=== PATIENT | female | born 1965 | race Caucasian/White ===

== ENCOUNTER 2018-12-26 10:01 | Inpatient (IN) | payer BC ==
[~2018-12-26] VITALS: Ht 165.1 cm; Wt 79.4 kg
[2018-12-26 14:01] VITALS: BP 103/60
[2018-12-26 14:23] LABS: ABSOLUTE NEUTROPHILS 5.4 thou/uL (1.4-8.2); BASOPHILS 1.3 % (0.0-2.0); EOSINOPHILS 1.3 % (0.0-3.0); HEMATOCRIT 28.8 % (37.0-47.0); HEMOGLOBIN 9.3 gm/dL (12.0-15.0); LYMPHOCYTES 23.9 % (24.0-44.0); MCH 25.3 pg (26.0-34.0); MCHC 32.2 g/dL (28.0-37.0); MCV 78.4 fL (80.0-100.0); MONOCYTES 11.7 % (1.0-8.0); PLATELET COUNT 323 thou/uL (150-400); POLYS 61.8 % (36.0-66.0); RBC 3.68 mil/uL (4.20-5.00); RDW 16.5 % (10.5-14.5); WBC 8.7 thou/uL (4.0-11.0)
[2018-12-26 14:35] LABS: ALBUMIN 2.1 g/dL (3.4-5.0); CREATININE 3.3 mg/dL (0.6-1.0); MAGNESIUM 2.7 mg/dL (1.8-2.4); POTASSIUM 4.8 mmol/L (3.5-5.1); TOTAL BILIRUBIN 0.2 mg/dL (<0.1-1.0)
--- NOTE | 2018-12-26 17:09 | NUR ---
PT RECIEVED FROM THE WOUND CLINIC TO RM 359 AT 1330. PT HAS LT TOES WOUNDS THAT STARTED ONE WEEK AGO. STATES SHE HAS NO PAIN FROM THE WOUNDS. AMBULATES STEADY AND STATES NO PAIN WHEN WALKING. DR. MARIN, SHEARER HELPER, WAS IN TO SEE PT AND CLEANED AND DRESSED THE TOES. CULTURE SENT PRIOR TO ANTIBIOTICS. URINE SENT. HAVING ULTRASOUND ARTERIOGRAM AT THIS TIME. MRI WILL BE DONE TOMORROW THEY STARTED THEY HAVE ERMERGENCIES TODAY.
[2018-12-26 19:53] LABS: URINE BILIRUBIN NEGATIVE (Negative); URINE BLOOD 2+ (Negative); URINE CLARITY CLEAR; URINE COLOR YELLOW; URINE GLUCOSE-RANDOM* 1+ (Negative); URINE KETONES NEGATIVE (Negative); URINE PROTEIN (DIPSTICK) 3+ (Negative); URINE UROBILINOGEN 0.2 E.U./dl (0.2-1.0)
[2018-12-26 19:54] LABS: URINE LEUKOCYTES-REFLEX 1+ (Negative); URINE NITRITE-REFLEX POSITIVE (Negative)
[2018-12-26 20:03] LABS: CASTS None Seen /LPF (None Seen); CRYSTALS None Seen /LPF (None Seen); SQUAMOUS 0-3 Few /LPF (0-3); URINE RBC 3-10 Few /HPF (0-2); URINE WBC-REFLEX >25 Many /HPF (0-5)
[2018-12-26 20:04] LABS: WBC CLUMPS Few (None Seen)
[2018-12-26 20:05] VITALS: BP 101/61
[2018-12-26] MEDS ORDERED: NEURONTIN 300300 M1 PO (20:58)
[2018-12-26] MEDS ORDERED: COZAAR 25 MG TA25 M1 PO (21:01)
[2018-12-26] MEDS ORDERED: HUMALOG100 UNIT/1 SUBQ (21:01)
[2018-12-26] MEDS ORDERED: AMLODIPINE BESY10 MG PO (21:01)
[2018-12-26] MEDS ORDERED: TRESIBA FL100 UNIT/1 SUBQ (21:02)
[2018-12-26] MEDS ORDERED: TYLENOL325 MG PO (21:03)
[2018-12-26 23:11] LABS: FERRITIN 432 ng/mL (8-252)
[2018-12-26 23:23] LABS: % SATURATION 17 % (20-39); IRON 31 ug/dL (50-170); TIBC 187 ug/dL (250-450)
[2018-12-27 00:50] VITALS: BP 107/67
--- NOTE | 2018-12-27 01:00 | NUR ---
PATIENT IS ALERT AND ORIENTED. PATIENT IS UP AD REID. PATIENT DRESSING WAS CHANGED THIS SHIFT. PATIENT IS ACHS. PATIENTS LBM WAS THE 17TH. PATIENTS HAS LOWER EXTREMITY EDEMA. ELEVATED WITH PILLOW. PATIENT IS INDEPENDENT AND CALLS APPROPIATELY. WCM. PATIENT IS PROGRESSING TO GOALS.
[2018-12-27 04:14] VITALS: BP 148/91
[2018-12-27 05:06] LABS: GLYCOHEMOGLOBIN (HGB A1C) 9.1 % (4.8-5.6)
[2018-12-27 07:27] VITALS: BP 147/82
[2018-12-27 10:42] LABS: HEMATOCRIT 27.8 % (37.0-47.0); HEMOGLOBIN 8.8 gm/dL (12.0-15.0); MCHC 31.6 g/dL (28.0-37.0); MCV 79.1 fL (80.0-100.0); RBC 3.51 mil/uL (4.20-5.00); RDW 16.3 % (10.5-14.5); WBC 6.1 thou/uL (4.0-11.0)
[2018-12-27 10:54] LABS: CREATININE 3.5 mg/dL (0.6-1.0); MAGNESIUM 2.5 mg/dL (1.8-2.4); POTASSIUM 5.1 mmol/L (3.5-5.1)
--- NOTE | 2018-12-27 12:02 | NUR ---
ASSUMED CARE OF PT AT 0700 THIS SHIFT. PT HAS BEEN COOPERATIVE, HAS DENIED ANY PAIN THIS SHIFT. PT WAS SEEN BY RENAL AND ID THIS SHIFT, ORDERS WRITTEN. PT IS FOLLOWING WITH COURSE OF TREATMENT. PT IS CURRENTLY RESTING COMFORTABLY IN ROOM, ASSESSMENTS ARE DOCUMENTED. PT HAS NOT HAD VISITORS THIS SHIFT, EDUCATION WAS PROVIDED. PLAN OF CARE IS TO CONTINUE TO MONITOR CLOSELY.
--- NOTE | 2018-12-27 13:45 | NUR ---
Nutrition: pt admit with Left foot/toe cellulitis and seen due to wound risk. Hx DM, BG 143-360 with A1C 9.1. Pt reports a gradual weight loss from 220# several years ago. Current 175#. Observed 100% intake of meals today. Encouraged adequate protein for wound healing. Pt did not voice diet related questions at this time however would benefit from improved BG control.Low risk
--- NOTE | 2018-12-27 15:25 | NUR ---
ASSESSMENT: CM REVIEWED CHART AND MET WITH PATIENT AT THE BEDSIDE. PT IS ALERT AND ORIENTED X4. PT WAS ADMITTED DUE TO LEFT FOOT WOUNDS ON HER TOES AND WAS A DIRECT ADMIT FROM THE WOUND CLINIC. PT REPORTS SHE LIVES IN A HOUSE WITH HER SON. PT REPORTS HAVING ONE STEP TO ENTER WITH A HANDRAIL. PT REPORTS ONCE INSIDE ALL HER NEEDS ARE ON ONE LEVEL. PT REPORTS AMBULATING INDEPENDENTLY. PT STATES SHE HAS A GRAB BAR IN THE SHOWER. CM DISCUSSED ROLE. PT STATES SHE HAS NOT HAD HH IN THE PAST. PATIENT IS CURRENTLY ON IV ANBX. CM WILL CONTINUE TO FOLLOW TO ASSIST NEEDED.
[2018-12-27 16:41] VITALS: BP 142/89
--- NOTE | 2018-12-27 17:31 | NUR ---
WOUND CONSULT: PT. WAS SEEN TODAY BY DR. GAVIN AND MYSELF. PT. WAS ADMITTED YESTERDAY FROM THE WOUND CLINIC FOR EVLUATION OF WOUNDS TO LEFT TOES. PT. HAS DIABETIC ULCERS TO HER LEFT TOES. RECOMMENDATIONS: GENTAMYCIN, XEROFORM, KERLIX, CHANGE DAILY AND PRN. PT. AND STAFF NURSE WERE INSTRUCTED ON PLAN OF CARE.
[2018-12-27 19:26] LABS: PROT/CREAT RATIO 13.5; URINE CREATININE-RANDOM* 25.3 mg/dL; URINE PROTEIN-RANDOM* 342.2 mg/dL (<11.9)
[2018-12-27 20:20] VITALS: BP 151/91
--- NOTE | 2018-12-27 22:40 | NUR ---
PATIENT IS ALERT AND ORIENTED. PATIENT IS STABLE. DRESSING INTACT. PATIENT MEDS AND ASSESSMENT COMPLETE. PATIENT TRANSFERED TO 4TH FLOOR. [facility]
--- NOTE | 2018-12-28 01:50 | NUR ---
RECEIVED REPORT FROM 3W RN AT 2245, PT ARRIVED TO UNIT APPROX 2300 IN STABLE CONDITION. ASSESSMENT AND VS COMPLETED; IV ABX INFUSING. PT A&Ox4, PLEASANT, UP AD REID. DRESSING TO LEFT FOOT C/D/I. DENIES PAIN, NAUSEA, OR SOB. NO OTHER CONCERNS, WILL CONTINUE TO MONITOR.
[2018-12-28 03:30] VITALS: BP 146/84
[2018-12-28 04:55] LABS: HEMATOCRIT 28.7 % (37.0-47.0); HEMOGLOBIN 9.1 gm/dL (12.0-15.0); MCHC 31.6 g/dL (28.0-37.0); RBC 3.63 mil/uL (4.20-5.00); RDW 16.2 % (10.5-14.5); WBC 7.2 thou/uL (4.0-11.0)
[2018-12-28 05:06] LABS: CALCIUM 8.4 mg/dL (8.5-10.1); CREATININE 3.4 mg/dL (0.6-1.0); MAGNESIUM 2.5 mg/dL (1.8-2.4); POTASSIUM 4.5 mmol/L (3.5-5.1)
[2018-12-28 07:25] VITALS: BP 149/91
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
--- NOTE | 2018-12-28 10:01 | NUR ---
ASSESMENT COMPLETED. VSS. A/O. DENIES PAIN. NO NOTED SOA. NO NV. PT RESTING IN BED APPEARS COMFORTABLE. UP AD REID. WILL CONT. TO MONITOR.
--- NOTE | 2018-12-28 12:07 | HC ---
[facility] [place] [place] [address] CONSULTATION Name: HARLEY GONZALES Room #: 423-1 ADM IN M.R.#: [id number] Admission: 12/26/18 ������������������ Attend Phys: Jitendra Valerio MD Discharge: ������������������ Date of : 61 Report #: [id number] THIS REPORT FOR: //name// CC: Mark Valerio DATE OF SERVICE: 12/27/2018 REASON FOR CONSULTATION: Chronic kidney disease. HISTORY OF PRESENT ILLNESS: This is a patient with longstanding diabetes and hypertension, has known CKD is followed by a field administrative assistant and was admitted with diabetic foot ulcers with infection, has a creatinine of 3.3 and a BUN of 43 and proteinuria. PAST MEDICAL HISTORY: She has had diabetes going on 20 years, at times poorly controlled and hypertension for about 10 years, reasonably well controlled. She had previous lumpectomy for breast cancer, cataract surgeries and now the onset of diabetic foot ulcers, followed by Dr. Valerio. HOME MEDICATIONS: Listed as amlodipine 10 mg daily, gabapentin 300 mg t.i.d., insulin and losartan 25 mg daily. FAMILY HISTORY: Positive for diabetes, negative for renal disease. SOCIAL HISTORY: Former smoker. 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 REVIEW OF SYSTEMS: GENERAL: She has been feeling fair. EYES: Vision has been okay. She did have the cataract surgeries, but apparently has not had retinopathy. ENT: Hearing okay, swallows okay. No mouth sores. ENDOCRINE: Positive for the diabetes. RESPIRATORY: Denies shortness of air, pleuritic pain, hemoptysis, cough. CARDIAC: No chest pain, angina, history of heart failure or palpitations. GASTROINTESTINAL: No nausea, vomiting, diarrhea or bloody stools. GENITOURINARY: No dysuria, hematuria or renal stone disease. NEUROLOGIC: She does have peripheral neuropathy, but no seizure, syncope or stroke. MUSCULOSKELETAL: Denies arthritis. She has got the foot ulcers on her left foot. PSYCHIATRIC: Denies depression or anxiety. PHYSICAL EXAMINATION: [facility] [address] [place] [address] [facility] #: [facility]1 [facility] IN M.R.#: [id number] Admission: 12/26/18 ������������������ Attend Phys: Jitendra Valerio MD Discharge: ������������������ Date of : 61 Report #: [id number] GENERAL: This is a reasonably comfortable appearing lucid patient giving a nice history. EYES: Vision is okay. SKIN: No sores or ulcers except for the left foot as mentioned. HEENT: Mucous membranes moist. Tongue, buccal mucosa benign. NECK: Supple, no carotid bruits, no lymphadenopathy. CHEST: Clear to auscultation. HEART: Regular without murmurs, gallops or rubs. ABDOMEN: Soft and nontender, without bruits, masses or organomegaly. EXTREMITIES: The left foot has a bandage on it. LABORATORY DATA: Urinalysis showed proteinuria and possible UTI. Hemoglobin is 9.3. Sodium 137, potassium 4.8, chloride 105, bicarbonate 25, creatinine 3.3, BUN 43. ASSESSMENT: 1. Chronic kidney disease. She appears to have chronic kidney disease, likely diabetic nephropathy. I am not sure what further evaluation has been done. For completeness, renal sonography, urine protein studies and paraprotein studies will be ordered. We will continue her on her angiotensin receptor jena as a protective for her chronic kidney disease. 2. Diabetic foot ulcer. 3. Diabetes mellitus with nephropathy and neuropathy. 4. History of breast cancer, status post lumpectomy. 5. Hypertension. DICTATION ENDS HERE. ��������������������������������������������� <ELECTRONICALLY SIGNED> ���������������������������������������� By: Gilberto Orr MD ��������������������������������������������� 12/28/18 1207 [id number] Gilberto Orr MD /nt
[2018-12-28 15:15] VITALS: BP 152/64
--- NOTE | 2018-12-28 15:27 | NUR ---
WOUND FOLLOW UP: PT. WAS SEEN TODAY BY DR. GAVIN AND MYSELF. PT. WOUNDS ARE CLINICALLY BETTER TODAY AND PT. IS HOPEFULLY TO BE DISCHARGED SOON. RECOMMENDATIONS: CONTINUE WITH CURRENT PLAN OF CARE. PT. AND STAFF NURSE WERE INSTRUCTED ON PLAN OF CARE.
[2018-12-28 20:19] VITALS: BP 125/77
--- NOTE | 2018-12-29 01:33 | NUR ---
PLEASANT. UP AD REID. DRSG TO L FOOT C/D/I.PT DENIES PAIN.ON IV ABTS.
[2018-12-29 03:21] VITALS: BP 134/73
[2018-12-29 04:28] LABS: HEMATOCRIT 26.3 % (37.0-47.0); HEMOGLOBIN 8.5 gm/dL (12.0-15.0); MCH 25.5 pg (26.0-34.0); MCHC 32.3 g/dL (28.0-37.0); MCV 78.9 fL (80.0-100.0); RBC 3.33 mil/uL (4.20-5.00); RDW 16.2 % (10.5-14.5); WBC 5.9 thou/uL (4.0-11.0)
[2018-12-29 04:47] LABS: CALCIUM 8.1 mg/dL (8.5-10.1); CREATININE 3.2 mg/dL (0.6-1.0); MAGNESIUM 2.3 mg/dL (1.8-2.4); POTASSIUM 4.5 mmol/L (3.5-5.1)
[2018-12-29 08:18] VITALS: BP 171/65
[2018-12-29 08:23] VITALS: BP 163/81
--- NOTE | 2018-12-29 08:26 | NUR ---
ASSESMENT COMPLETE. VSS. A/O. DENIES PAIN. NO NOTED SOA. NO NV. BLOOD SUGAR LOW THIS AM- APPLE JUICE GIVEN. PT RESTING IN BED. NO CONCERNS VOICED. WILL CONT. TO MONITOR.
[2018-12-29 16:08] VITALS: BP 134/81
[2018-12-29 19:23] VITALS: BP 155/86
[2018-12-30 04:01] VITALS: BP 136/70
[2018-12-30 04:06] LABS: HEMOGLOBIN 8.4 gm/dL (12.0-15.0); MCH 25.4 pg (26.0-34.0); MCHC 32.2 g/dL (28.0-37.0); RBC 3.29 mil/uL (4.20-5.00); RDW 16.3 % (10.5-14.5); WBC 5.8 thou/uL (4.0-11.0)
[2018-12-30 04:21] LABS: CALCIUM 8.3 mg/dL (8.5-10.1); CREATININE 3.2 mg/dL (0.6-1.0); MAGNESIUM 2.2 mg/dL (1.8-2.4); POTASSIUM 4.7 mmol/L (3.5-5.1)
--- NOTE | 2018-12-30 04:30 | NUR ---
PT AMBULATING TO BATHROOM INDEPENDENTLY AND IS TOLERATING WELL. DENIES PAIN. FELT THOUGH BLOOD SUGAR WAS LOW AROUND 0345--CHECKED AND IT WAS 54. REFUSED N30--GQWES FOUR JUICES AND WILL RECHECK HERSELF. WILL MONITOR. RESTING COMFORTABLY. NO NEEDS VOICED. CALL LIGHT WITHIN REACH. WILL CONTINUE TO PROVIDE FREQUENT OBSERVATION.
[2018-12-30 07:35] VITALS: BP 130/81
[2018-12-30] MEDS ORDERED: CARDIZEM CD120 MG PO (10:40)
[2018-12-30] MEDS ORDERED: COZAAR 50 MG TA50 M1 PO (10:40)
[2018-12-30] MEDS ORDERED: AUGMENTIN 875-1 EACH PO (10:42)
[2018-12-30 11:32] VITALS: BP 130/81
--- NOTE | 2018-12-30 12:14 | NUR ---
ASSUMED PATIENT CRAE AT 0700. A/O X4. PLEASANT. LEFT FOOT DRESSING CHANGED PER ORDER. WILL DC TO HOME SOON. PROGRESSING TOWARDS POC GOALS.
--- NOTE | 2018-12-31 07:35 | HC ---
[facility] [address] [address] [place] [address] CONSULTATION Name: HARLEY GONZALES Room #: 423-1 [facility] IN M.R.#: [id number] Admission: 12/26/18 ������������������ Attend Phys: Jitendra Valerio MD Discharge: 12/30/18 ������������������ Date of : 61 Report #: [id number] THIS REPORT FOR: //name// CC: Mark Valerio DATE OF SERVICE: 12/27/2018 CHIEF COMPLAINT: Diabetic foot infection. HISTORY OF PRESENT ILLNESS: This is a 53-year-old female patient who was followed in the Wound Care Clinic who developed blistering of all the toes of the left foot with significant surrounding infection and cellulitis. She was admitted for aggressive antibiotic support. PAST MEDICAL HISTORY: Positive for diabetes mellitus, hypertension, diabetic foot infection. ALLERGIES: None. SOCIAL HISTORY: Positive for being a previous smoker. She has previously quit alcohol consumption on special occasions. PAST MEDICAL HISTORY: Hypertension, diabetes mellitus, hyperlipidemia, chronic kidney disease. FAMILY HISTORY: Noncontributory. REVIEW OF SYSTEMS: CONSTITUTIONAL: The patient denies fever, chills or weight loss. NEUROLOGICAL: The patient denies focal weakness, numbness, tingling. EYES: The patient denies visual changes, redness or drainage. ENT: The patient denies earache, nasal drainage or sore throat. CARDIOVASCULAR: The patient denies chest pain, palpitations or diaphoresis. PULMONARY: The patient denies cough or shortness of breath. GASTROINTESTINAL: The patient denies nausea, vomiting, diarrhea or abdominal pain. ORTHOPEDIC: The patient does have some mild pain and blistering of her toes of her left foot. Other systems in a 14-point review of systems are negative. PHYSICAL EXAMINATION: VITAL SIGNS: At this time include temperature 98.3, pulse 85, respiration rate 16, blood pressure 103/60. GENERAL: This is a chronically ill-appearing female patient who appears to be [facility] [address] [place] [address] CONSULTATION Name: HARLEY GONZALES Room #: [facility]-1 [facility] IN .R.#: [id number] Admission: 12/26/18 ������������������ Attend Phys: Jitendra Valerio MD Discharge: 12/30/18 ������������������ Date of : 61 Report #: [id number] in mental stress. HEENT: Head normocephalic. Nose and throat are clear. NECK: Supple. LUNGS: Clear. ABDOMEN: Soft. Bowel sounds present. EXTREMITIES: Lower extremities demonstrate ulcerations to the first through fourth toes of the left foot. These have already been debrided. There is a little bit of fibrinous material on the bases. There is some surrounding erythema involving the toes. LABORATORY DATA: Include an MRI, which shows questionable findings of osteomyelitis of the first toe distal phalanx versus old fracture. Arterial Doppler showed no evidence of significant stenosis. CLINICAL IMPRESSION: Diabetic foot infection with ulceration of the first through fourth toes of the left foot, status post bedside debridement by Dr. Smyth, finishing range operator. RECOMMENDATIONS: At this point in time, we will follow her with local wound care, topical gentamicin ointment and Xeroform gauze. Appreciate Podiatry input and comment regarding the MRI findings. Continue with antibiotic therapy. Continue with nutritional support to maximize wound healing and maintain glycemic control. Continue with current medications. ��������������������������������������������� <ELECTRONICALLY SIGNED> ���������������������������������������� By: Karan Eisenberg MD ��������������������������������������������� 12/31/18 0735 [id number] [id number] Karan Eisenberg MD /nt
[2018-12-31 18:08] LABS: GLOBULIN TOTAL 3.3 g/dL (2.2-3.9); M-SPIKE Not Observed g/dL (Not Observed)
== END 2018-12-30 13:45 | disposition home or self-care (01) | DRG 623 ==
LOC: HYPER 10:01 → 4E 12:56 → 3W 12:56 → 4E 12-27 22:30 → HYPER 12-31 09:51
PROVIDERS: Emergency Medicine; Internal Medicine Nephrology; Nurse Practitioner; ADMIT Internal Medicine
PROC: 0JBR0ZZ Excision of Left Foot Subcutaneous Tissue and Fascia, Open Approach (ICD-10-PCS; principal; 2018-12-26)
DX: E11.621 Type 2 diabetes mellitus with foot ulcer (principal); L03.116 Cellulitis of left lower limb; N39.0 Urinary tract infection, site not specified; L97.528 Non-pressure chronic ulcer of other part of left foot with other specified severity; E11.65 Type 2 diabetes mellitus with hyperglycemia; E11.22 Type 2 diabetes mellitus with diabetic chronic kidney disease; N18.9 Chronic kidney disease, unspecified; I12.9 Hypertensive chronic kidney disease with stage 1 through stage 4 chronic kidney disease, or unspecified chronic kidney disease; E78.5 Hyperlipidemia, unspecified; E11.42 Type 2 diabetes mellitus with diabetic polyneuropathy; Z98.42 Cataract extraction status, left eye; Z79.4 Long term (current) use of insulin; Z98.41 Cataract extraction status, right eye; Z83.3 Family history of diabetes mellitus; Z85.3 Personal history of malignant neoplasm of breast
CPT/HCPCS: 10779; 10783

== ENCOUNTER → 2019-01-22 | Outpatient (CLI) | payer BC ==
[~2019-01-22] MED LIST: AMLODIPINE BESY10 MG PO; AUGMENTIN 875-1 EACH PO; CARDIZEM CD120 MG PO; COZAAR 25 MG TA25 M1 PO; COZAAR 50 MG TA50 M1 PO; HUMALOG100 UNIT/1 SUBQ; NEURONTIN 300300 M1 PO; TRESIBA FL100 UNIT/1 SUBQ; TYLENOL325 MG PO
== END ==
LOC: HYPER 06:57
DX: E11.621 Type 2 diabetes mellitus with foot ulcer (principal); L97.511 Non-pressure chronic ulcer of other part of right foot limited to breakdown of skin; E11.21 Type 2 diabetes mellitus with diabetic nephropathy; E11.22 Type 2 diabetes mellitus with diabetic chronic kidney disease; I12.0 Hypertensive chronic kidney disease with stage 5 chronic kidney disease or end stage renal disease; N18.5 Chronic kidney disease, stage 5; E66.09 Other obesity due to excess calories; L03.116 Cellulitis of left lower limb; L84 Corns and callosities; E11.40 Type 2 diabetes mellitus with diabetic neuropathy, unspecified; E78.5 Hyperlipidemia, unspecified; M81.0 Age-related osteoporosis without current pathological fracture; G89.29 Other chronic pain; K21.9 Gastro-esophageal reflux disease without esophagitis; D50.9 Iron deficiency anemia, unspecified; R60.0 Localized edema; F17.219 Nicotine dependence, cigarettes, with unspecified nicotine-induced disorders; Z68.31 Body mass index [BMI] 31.0-31.9, adult; Z79.4 Long term (current) use of insulin; Z85.3 Personal history of malignant neoplasm of breast

== ENCOUNTER → 2019-02-13 | Outpatient (CLI) | payer BC | LOC: HYPER 02-05 06:58 | DX: E11.621 Type 2 diabetes mellitus with foot ulcer (principal); L97.521 Non-pressure chronic ulcer of other part of left foot limited to breakdown of skin; S90.822D Blister (nonthermal), left foot, subsequent encounter; L03.116 Cellulitis of left lower limb; E11.65 Type 2 diabetes mellitus with hyperglycemia; E11.40 Type 2 diabetes mellitus with diabetic neuropathy, unspecified; E11.21 Type 2 diabetes mellitus with diabetic nephropathy; I12.0 Hypertensive chronic kidney disease with stage 5 chronic kidney disease or end stage renal disease; N18.5 Chronic kidney disease, stage 5; E66.09 Other obesity due to excess calories; E78.5 Hyperlipidemia, unspecified; G89.29 Other chronic pain; D50.9 Iron deficiency anemia, unspecified; R60.0 Localized edema; K21.9 Gastro-esophageal reflux disease without esophagitis; M81.0 Age-related osteoporosis without current pathological fracture; F17.219 Nicotine dependence, cigarettes, with unspecified nicotine-induced disorders; Z79.4 Long term (current) use of insulin; Z85.3 Personal history of malignant neoplasm of breast; Z68.31 Body mass index [BMI] 31.0-31.9, adult; Y93.01 Activity, walking, marching and hiking ==